=== PATIENT | female | born 1945 ===

== ENCOUNTER 2017-09-27 12:12 | Inpatient (IN) | payer MEDICARE, MEDICAID ==
[2017-09-27] VITALS (8 sets, daily range): BP systolic 84–156; BP diastolic 34–75
[~2017-09-27] VITALS: Ht 170.2 cm; Wt 139.5 kg
[2017-09-27] MEDS ORDERED: normal saline 1000ml 1,000 ML IV SCH (16:26)
[2017-09-27] MEDS ORDERED: acetaminophen 325mg tablet PO PRN ×2 (16:30)
[2017-09-27] MEDS ORDERED: HYDROcodone/acetaminophen 5mg/325mg tablet PO PRN (16:30)
[2017-09-27] MEDS ORDERED: morphine 5 MG/ML injection IV PRN (16:30)
[2017-09-27] MEDS ORDERED: ondansetron/PF 4mg/2ml inj IV PRN (16:30)
[2017-09-27] MEDS ORDERED: vancomycin/NS 1 GM ADD-VANTAGE 250 ML IV ONE (16:30)
[2017-09-27 16:40] LABS: ABG HCO3 8.5 mmol/L (22.0-26.0); ABG OXYGEN SATURATION 96.5 % (95-98); ABG PCO2 (T) 29.1 mmHg (32.0-45.0); ABG PH (T) 7.082 (7.350-7.450); ABG PO2 (T) 106.8 mmHg (83-108); FCOHb 0.2 % (0.5-1.5); FLOW 9 L/min; FMetHb 0.2 % (0.3-1.12); FO2Hb 96.1 % (94-100); RESPIRATORY RATE (OBSERVED) 26 b/min; TOTAL HEMOGLOBIN 9.5 G/dl (12.0-16.0)
[2017-09-27] MEDS: NORepinephrine 8mg/ 250ml NS 250 ML IV PRN ×2 (16:48→19:03)
[2017-09-27 16:55] LABS: OXYGEN SATURATION (MIXED VEN) 60.8 % (60-80); PO2 MIXED VENOUS (TEMP COR) 37.1 mmHg (35-46)
[2017-09-27 16:55] LABS: BASOPHILS % (AUTO) 0 % (0-1); EOSINOPHILS # (AUTO) 0.2 X10'3 (0-0.9); EOSINOPHILS % (AUTO) 1.1 % (0-6); HEMATOCRIT 27.1 % (35.0-45.0); HEMOGLOBIN 8.7 g/dl (12.0-16.0); LYMPHOCYTES # (AUTO) 1.5 X10'3 (1.1-4.8); LYMPHOCYTES % (AUTO) 6.9 % (21-51); MEAN CORPUSCULAR HEMOGLOBIN 27.4 PG (27.0-31.0); MEAN CORPUSCULAR HGB CONC 32.2 % (33.0-36.5); MEAN CORPUSCULAR VOLUME 85.2 FL (78-98); MEAN PLATELET VOLUME 8.9 FL (7.4-10.4); MONOCYTES # (AUTO) 0.8 X10'3 (0-0.9); MONOCYTES % (AUTO) 3.7 % (2-12); NEUTROPHILS # (AUTO) 19.5 X10'3 (1.8-7.7); NEUTROPHILS % (AUTO) 88.3 % (42-75); PLATELET COUNT 319 X10'3 (140-440); RED BLOOD COUNT 3.18 X10'6 (4.20-5.60); RED CELL DISTRIBUTION WIDTH 16.9 % (11.5-14.5); WHITE BLOOD COUNT 22.1 X10'3 (4.5-11.0)
[2017-09-27] MEDS: CefTRIAXone/D5W-Rocephin 1gm 50 ML IV SCH (17:09)
[2017-09-27 17:25] LABS: ALANINE AMINOTRANSFERASE 11 U/L (12-78); ALBUMIN 2.5 G/DL (3.4-5.0); ALBUMIN/GLOBULIN RATIO 0.6 (1.1-1.5); ALKALINE PHOSPHATASE 87 IU/L (46-116); ANION GAP 30 (8-16); ASPARTATE AMINO TRANSFERASE 17 U/L (10-37); BILIRUBIN,TOTAL 0.5 MG/DL (0.1-1.0); BLOOD UREA NITROGEN 72 MG/DL (7-18); BUN/CREATININE RATIO 8.9 (6.6-38.0); CALCIUM 7.8 MG/DL (8.5-10.1); CHLORIDE 97 MMOL/L (99-107); GLUCOSE 187 MG/DL (70-104); MAGNESIUM 1.6 MG/DL (1.5-2.4); POTASSIUM 5.9 MMOL/L (3.5-5.1); SODIUM 139 MMOL/L (135-145); TOTAL PROTEIN 6.5 G/DL (6.4-8.2); eGFR 5 ML/MIN
[2017-09-27 17:29] LABS: PHOSPHORUS 10.5 MG/DL (2.3-4.5)
[2017-09-27 17:31] LABS: TOTAL CARBON DIOXIDE 12.3 MMOL/L (24-32)
[2017-09-27 17:41] LABS: D-DIMER 2.27 MG/L FEU (0-0.50); INR 1.1 INR; PARTIAL THROMBOPLASTIN TIME 32 SECONDS (22-32); PROTHROMBIN TIME 11.8 SECONDS (9.0-12.0)
[2017-09-27] MEDS: vasopressin inj. 60 UNIT in normal saline 100ml IV soln 97 ML IV SCH (17:47)
[2017-09-27] MEDS: sodium bicarbonate (8.4%) inj. 150 MEQ in dextrose 5%-water 1,000 ML IV SCH (17:51)
[2017-09-27 17:55] LABS: PLATELET COUNT 319 X10'3 (140-440)
[2017-09-27] MEDS: docusate sod 100mg capsule PO SCH (20:00)
[2017-09-27] MEDS: heparin, porcine 5000 units/ml vial SQ SCH (22:00)
[2017-09-27 22:11] LABS: ABG HCO3 6.6 mmol/L (22.0-26.0); ABG OXYGEN SATURATION 94.3 % (95-98); ABG PCO2 (T) 26.1 mmHg (32.0-45.0); ABG PH (T) 7.019 (7.350-7.450); ABG PO2 (T) 87.1 mmHg (83-108); FCOHb 0.3 % (0.5-1.5); FLOW 4 L/min; FMetHb 0.3 % (0.3-1.12); FO2Hb 93.7 % (94-100); PATIENT TEMPERATURE 36.3; RESPIRATORY RATE (OBSERVED) 20 b/min
[2017-09-27] MEDS ORDERED: sodium bicarbonate (8.4%) 1 mEq/ml syringe IV ONE (22:15)
[2017-09-27 22:51] LABS: ALBUMIN 2.5 G/DL (3.4-5.0); ANION GAP 30 (8-16); BLOOD UREA NITROGEN 74 MG/DL (7-18); BUN/CREATININE RATIO 9.1 (6.6-38.0); CALCIUM 7.5 MG/DL (8.5-10.1); CHLORIDE 96 MMOL/L (99-107); GLUCOSE 230 MG/DL (70-104); SODIUM 138 MMOL/L (135-145); eGFR 5 ML/MIN
[2017-09-27 23:01] LABS: POTASSIUM 6.3 MMOL/L (3.5-5.1); TOTAL CARBON DIOXIDE 11.7 MMOL/L (24-32)
[2017-09-27] MEDS ORDERED: calcium chloride 100 MG/1 ML inj IV ONE (23:05)
[2017-09-27] MEDS ORDERED: insulin regular, human 10 units/0.1 ml syringe IV ONE (23:05)
[2017-09-27] MEDS ORDERED: dextrose 50%-water 50ml dispensing syringe IV ONE (23:05)
[2017-09-27] MEDS ORDERED: sodium polystyrene sulfonate 15gm/60ml oral suspension PO ONE (23:05)
[2017-09-27] MEDS ORDERED: insulin regular, human vial - multi-dose ONE (23:17)
[2017-09-28] VITALS (25 sets, daily range): BP systolic 70–157; BP diastolic 39–114
[2017-09-28 02:27] LABS: BASOPHILS % (AUTO) 0.1 % (0-1); EOSINOPHILS % (AUTO) 0 % (0-6); HEMATOCRIT 27.6 % (35.0-45.0); HEMOGLOBIN 8.8 g/dl (12.0-16.0); LYMPHOCYTES # (AUTO) 2.2 X10'3 (1.1-4.8); LYMPHOCYTES % (AUTO) 6.7 % (21-51); MEAN CORPUSCULAR HEMOGLOBIN 27.2 PG (27.0-31.0); MEAN CORPUSCULAR HGB CONC 31.8 % (33.0-36.5); MEAN CORPUSCULAR VOLUME 85.8 FL (78-98); MEAN PLATELET VOLUME 9.1 FL (7.4-10.4); MONOCYTES # (AUTO) 2.4 X10'3 (0-0.9); MONOCYTES % (AUTO) 7.2 % (2-12); NEUTROPHILS # (AUTO) 28.5 X10'3 (1.8-7.7); PLATELET COUNT 349 X10'3 (140-440); RED BLOOD COUNT 3.22 X10'6 (4.20-5.60); RED CELL DISTRIBUTION WIDTH 16.7 % (11.5-14.5)
[2017-09-28 02:36] LABS: WHITE BLOOD COUNT 33.2 X10'3 (4.5-11.0)
[2017-09-28 02:56] LABS: ALANINE AMINOTRANSFERASE 16 U/L (12-78); ALBUMIN 2.4 G/DL (3.4-5.0); ALBUMIN/GLOBULIN RATIO 0.6 (1.1-1.5); ALKALINE PHOSPHATASE 90 IU/L (46-116); ANION GAP 32 (8-16); ASPARTATE AMINO TRANSFERASE 33 U/L (10-37); BILIRUBIN,TOTAL 0.5 MG/DL (0.1-1.0); BLOOD UREA NITROGEN 76 MG/DL (7-18); BUN/CREATININE RATIO 9.2 (6.6-38.0); CALCIUM 8.1 MG/DL (8.5-10.1); CHLORIDE 97 MMOL/L (99-107); GLUCOSE 235 MG/DL (70-104); MAGNESIUM 1.6 MG/DL (1.5-2.4); POTASSIUM 5.5 MMOL/L (3.5-5.1); SODIUM 139 MMOL/L (135-145); TOTAL PROTEIN 6.3 G/DL (6.4-8.2); eGFR 5 ML/MIN
[2017-09-28 02:58] LABS: PHOSPHORUS 10.6 MG/DL (2.3-4.5)
[2017-09-28 03:01] LABS: TOTAL CARBON DIOXIDE 9.8 MMOL/L (24-32)
[2017-09-28 03:07] LABS: TOTAL CELLS COUNTED 100
[2017-09-28 03:08] LABS: ANISOCYTOSIS 1+; PLATELET ESTIMATE NORMAL
[2017-09-28] MEDS: sodium bicarbonate (8.4%) inj. 150 MEQ in dextrose 5%-water 1,000 ML IV SCH ×2 (04:08→15:55)
[2017-09-28] MEDS: NORepinephrine 8mg/ 250ml NS 250 ML IV PRN ×4 (07:13→23:17)
[2017-09-28] MEDS: docusate sod 100mg capsule PO SCH ×2 (08:00→20:00)
[2017-09-28 08:03] LABS: CLARITY,URINE CLOUDY (Clear); COLOR,URINE BROWN (Yellow); GLUCOSE, URINE NEGATIVE (Neg); KETONES,URINE NEGATIVE (Neg); LEUKOCYTE ESTERASE ,URINE LARGE (Neg); NITRITES, URINE NEGATIVE (Neg); OCCULT BLOOD,URINE LARGE (Neg); PH,URINE 5.5 (4.8-8.0); PROTEIN,URINE >=300 mg/dl (Neg); UROBILINOGEN,URINE 0.2 E.U/dL (0.2-1.0)
[2017-09-28 08:07] LABS: UA COLLECTION TYPE FOLEY CATH
[2017-09-28 08:20] LABS: ABG BASE EXCESS -18.6 mmol/L (-2.0-3.0); ABG HCO3 9.6 mmol/L (22.0-26.0); ABG OXYGEN SATURATION 96.3 % (95-98); ABG PH (T) 7.107 (7.350-7.450); ABG PO2 (T) 101.3 mmHg (83-108); FCOHb 0.2 % (0.5-1.5); FLOW 6 L/min; FMetHb 0.2 % (0.3-1.12); FO2Hb 95.9 % (94-100); RESPIRATORY RATE (OBSERVED) 20 b/min; TOTAL HEMOGLOBIN 9.7 G/dl (12.0-16.0)
[2017-09-28 08:25] LABS: BACTERIA,URINE 2+ /HPF (Neg); MUCUS STRANDS FEW /LPF (Neg); RBC,URINE 50-100 /HPF (0-2); SQUAMOUS EPITHELIAL CELL,UR FEW /LPF (FEW); WBC,URINE TNTC /HPF (0-4)
[2017-09-28 08:26] LABS: RENAL CELLS, URINE MODERATE /HPF; TRANSITIONAL EPI CELLS,URINE MODERATE /HPF
[2017-09-28 08:41] LABS: UA EOSINOPHILS NO EOS /HPF
[2017-09-28] MEDS: heparin, porcine 5000 units/ml vial SQ SCH ×2 (08:50→21:38)
[2017-09-28] MEDS: CefTRIAXone/D5W-Rocephin 1gm 50 ML IV SCH (08:51)
[2017-09-28 08:54] LABS: TOTAL PROTEIN,URINE RANDOM 347.2 MG/DL
[2017-09-28] MEDS ORDERED: ASPI-107 PO (10:54)
[2017-09-28] MEDS ORDERED: CARV-50 PO (10:56)
[2017-09-28] MEDS ORDERED: DOCU250C4 PO (10:58)
[2017-09-28] MEDS ORDERED: FURO40TA4 PO (10:59)
[2017-09-28] MEDS ORDERED: GABA-534 PO (11:01)
[2017-09-28] MEDS ORDERED: GABA800T2 PO (11:02)
[2017-09-28] MEDS ORDERED: IBUP-2264 PO (11:03)
[2017-09-28] MEDS ORDERED: INSU100V9 SQ (11:05)
[2017-09-28] MEDS ORDERED: LISI40TA4 PO (11:05)
[2017-09-28] MEDS ORDERED: METF500T PO (11:07)
[2017-09-28] MEDS ORDERED: PIOG45TA5 PO (11:08)
[2017-09-28] MEDS ORDERED: SIMV20TA5 PO (11:08)
[2017-09-28] MEDS ORDERED: ASCO-248 PO (11:12)
[2017-09-28] MEDS ORDERED: pneumococcal 23-VAL P-sac vacc 25 mcg/0.5ml vial IMVAC ONE (11:20)
[2017-09-28] MEDS ORDERED: FLU VACC QS2017-18 36MOS UP/PF 60 MCG/0.5 ML SYRINGE IMVAC ONE (11:20)
[2017-09-28] MEDS: vasopressin inj. 60 UNIT in normal saline 100ml IV soln 97 ML IV SCH (11:34)
[2017-09-28] MEDS ORDERED: Duosol 4k/NO Calcium 5,000 ML HE SCH (14:33)
[2017-09-28] MEDS ORDERED: sodium phosphate inj. 30 MMOL in normal saline 250ml IV soln 250 ML IV PRN (14:35)
[2017-09-28] MEDS ORDERED: potassium Cl 20mEq/100mL bag 100 ML IV PRN (14:35)
[2017-09-28] MEDS ORDERED: calcium chloride inj. 1,000 MG in normal saline 100ml IV soln 100 ML IV PRN (14:35)
[2017-09-28] MEDS ORDERED: magnesium 4gm in 100ml NS 100 ML IV PRN (14:35)
[2017-09-28] MEDS ORDERED: calcium chloride inj. 10,000 MG in normal saline 500ml IV soln 400 ML IV PRN (14:35)
[2017-09-28] MEDS: morphine 5 MG/ML injection IV PRN ×3 (14:43→22:36)
[2017-09-28] MEDS: lactobacillus rhamnosus 10,000 MMU CELLS/CAPSULE PO SCH (15:56)
[2017-09-28] MEDS ORDERED: dextrose ORAL solution 15 GM/59 ML bottle PO PRN ×2 (16:20)
[2017-09-28] MEDS ORDERED: dextrose 50%-water 50ml dispensing syringe IV PRN ×2 (16:20)
[2017-09-28] MEDS ORDERED: glucagon, human recombinant 1mg kit SUBCUT PRN (16:20)
[2017-09-28] MEDS: citrate dextrose 1000ml IV sol 1,000 ML IV PRN ×2 (18:43→22:22)
[2017-09-28] MEDS: Duosol 4k/NO Calcium 5,000 ML HE PRN ×2 (18:55→19:05)
[2017-09-28] MEDS ORDERED: insulin glargine (Lantus) pen - multi-dose SQ SCH (21:00)
[2017-09-28 21:13] LABS: BASOPHILS # (AUTO) 0.1 X10'3 (0-0.2); BASOPHILS % (AUTO) 0.3 % (0-1); EOSINOPHILS % (AUTO) 0 % (0-6); HEMATOCRIT 26.3 % (35.0-45.0); HEMOGLOBIN 8.4 g/dl (12.0-16.0); LYMPHOCYTES % (AUTO) 3.7 % (21-51); MEAN CORPUSCULAR HEMOGLOBIN 27.2 PG (27.0-31.0); MEAN CORPUSCULAR HGB CONC 32.1 % (33.0-36.5); MEAN CORPUSCULAR VOLUME 84.8 FL (78-98); MEAN PLATELET VOLUME 8.8 FL (7.4-10.4); MONOCYTES % (AUTO) 7.7 % (2-12); NEUTROPHILS # (AUTO) 23.3 X10'3 (1.8-7.7); NEUTROPHILS % (AUTO) 88.3 % (42-75); PLATELET COUNT 308 X10'3 (140-440); RED CELL DISTRIBUTION WIDTH 16.5 % (11.5-14.5)
[2017-09-28 21:25] LABS: WHITE BLOOD COUNT 26.4 X10'3 (4.5-11.0)
[2017-09-28 21:35] LABS: ALBUMIN 2.6 G/DL (3.4-5.0); ANION GAP 28 (8-16); BLOOD UREA NITROGEN 80 MG/DL (7-18); BUN/CREATININE RATIO 10.3 (6.6-38.0); CHLORIDE 98 MMOL/L (99-107); GLUCOSE 196 MG/DL (70-104); MAGNESIUM 1.6 MG/DL (1.5-2.4); POTASSIUM 5.4 MMOL/L (3.5-5.1); SODIUM 141 MMOL/L (135-145); TOTAL CARBON DIOXIDE 15.5 MMOL/L (24-32); eGFR 5 ML/MIN
[2017-09-28] MEDS: insulin Lispro (HumaLOG) vial - multi-dose SQ SCH (21:36)
[2017-09-28 21:46] LABS: PHOSPHORUS 9.6 MG/DL (2.3-4.5)
[2017-09-28 22:08] LABS: BASOPHILS # (AUTO) 0.1 X10'3 (0-0.2); BASOPHILS % (AUTO) 0.2 % (0-1); EOSINOPHILS # (AUTO) 0.4 X10'3 (0-0.9); EOSINOPHILS % (AUTO) 1.5 % (0-6); HEMATOCRIT 26.5 % (35.0-45.0); HEMOGLOBIN 8.6 g/dl (12.0-16.0); LYMPHOCYTES # (AUTO) 0.9 X10'3 (1.1-4.8); LYMPHOCYTES % (AUTO) 3.5 % (21-51); MEAN CORPUSCULAR HEMOGLOBIN 27.2 PG (27.0-31.0); MEAN CORPUSCULAR HGB CONC 32.4 % (33.0-36.5); MEAN CORPUSCULAR VOLUME 83.9 FL (78-98); MEAN PLATELET VOLUME 8.6 FL (7.4-10.4); MONOCYTES # (AUTO) 1.7 X10'3 (0-0.9); MONOCYTES % (AUTO) 6.4 % (2-12); NEUTROPHILS # (AUTO) 23.6 X10'3 (1.8-7.7); NEUTROPHILS % (AUTO) 88.4 % (42-75); PLATELET COUNT 312 X10'3 (140-440); RED BLOOD COUNT 3.16 X10'6 (4.20-5.60); RED CELL DISTRIBUTION WIDTH 17.1 % (11.5-14.5)
[2017-09-28 22:12] LABS: WHITE BLOOD COUNT 26.7 X10'3 (4.5-11.0)
[2017-09-28 22:29] LABS: ALBUMIN 2.6 G/DL (3.4-5.0); ANION GAP 28 (8-16); BLOOD UREA NITROGEN 77 MG/DL (7-18); BUN/CREATININE RATIO 10.3 (6.6-38.0); CHLORIDE 97 MMOL/L (99-107); GLUCOSE 204 MG/DL (70-104); MAGNESIUM 1.5 MG/DL (1.5-2.4); PHOSPHORUS 9.1 MG/DL (2.3-4.5); POTASSIUM 5.4 MMOL/L (3.5-5.1); SODIUM 140 MMOL/L (135-145); TOTAL CARBON DIOXIDE 15.1 MMOL/L (24-32); eGFR 5 ML/MIN
[2017-09-28 23:09] LABS: BASOPHILS # (AUTO) 0.1 X10'3 (0-0.2); BASOPHILS % (AUTO) 0.3 % (0-1); EOSINOPHILS % (AUTO) 0 % (0-6); HEMATOCRIT 26.3 % (35.0-45.0); HEMOGLOBIN 8.6 g/dl (12.0-16.0); LYMPHOCYTES % (AUTO) 3.7 % (21-51); MEAN CORPUSCULAR HEMOGLOBIN 27.3 PG (27.0-31.0); MEAN CORPUSCULAR HGB CONC 32.6 % (33.0-36.5); MEAN CORPUSCULAR VOLUME 83.7 FL (78-98); MEAN PLATELET VOLUME 8.7 FL (7.4-10.4); MONOCYTES # (AUTO) 1.9 X10'3 (0-0.9); MONOCYTES % (AUTO) 7.2 % (2-12); NEUTROPHILS # (AUTO) 23.7 X10'3 (1.8-7.7); NEUTROPHILS % (AUTO) 88.8 % (42-75); PLATELET COUNT 299 X10'3 (140-440); RED BLOOD COUNT 3.14 X10'6 (4.20-5.60); RED CELL DISTRIBUTION WIDTH 16.4 % (11.5-14.5)
[2017-09-28 23:21] LABS: TOTAL CELLS COUNTED 100
[2017-09-28 23:21] LABS: ALBUMIN 2.7 G/DL (3.4-5.0); ANION GAP 27 (8-16); BLOOD UREA NITROGEN 76 MG/DL (7-18); BUN/CREATININE RATIO 10.7 (6.6-38.0); CHLORIDE 97 MMOL/L (99-107); GLUCOSE 201 MG/DL (70-104); MAGNESIUM 1.5 MG/DL (1.5-2.4); PHOSPHORUS 8.7 MG/DL (2.3-4.5); POTASSIUM 5.3 MMOL/L (3.5-5.1); SODIUM 140 MMOL/L (135-145); TOTAL CARBON DIOXIDE 16.2 MMOL/L (24-32); eGFR 6 ML/MIN
[2017-09-28 23:22] LABS: ANISOCYTOSIS 1+; BURR CELLS 1+; ELLIPTOCYTES 1+; PLATELET ESTIMATE NORMAL
[2017-09-28 23:34] LABS: WHITE BLOOD COUNT 26.7 X10'3 (4.5-11.0)
[2017-09-28] MEDS ORDERED: calcium chloride 100 MG/1 ML inj IV ONE (23:44)
[2017-09-29] VITALS (16 sets, daily range): BP systolic 52–155; BP diastolic 32–95
[2017-09-29 00:11] LABS: BASOPHILS % (AUTO) 0.1 % (0-1); EOSINOPHILS # (AUTO) 0.4 X10'3 (0-0.9); EOSINOPHILS % (AUTO) 1.5 % (0-6); HEMATOCRIT 26.1 % (35.0-45.0); HEMOGLOBIN 8.6 g/dl (12.0-16.0); LYMPHOCYTES # (AUTO) 0.9 X10'3 (1.1-4.8); LYMPHOCYTES % (AUTO) 3.3 % (21-51); MEAN CORPUSCULAR HEMOGLOBIN 27.4 PG (27.0-31.0); MEAN CORPUSCULAR HGB CONC 32.9 % (33.0-36.5); MEAN CORPUSCULAR VOLUME 83.4 FL (78-98); MEAN PLATELET VOLUME 8.7 FL (7.4-10.4); MONOCYTES # (AUTO) 2.1 X10'3 (0-0.9); NEUTROPHILS # (AUTO) 22.9 X10'3 (1.8-7.7); NEUTROPHILS % (AUTO) 87.1 % (42-75); PLATELET COUNT 307 X10'3 (140-440); RED BLOOD COUNT 3.13 X10'6 (4.20-5.60); RED CELL DISTRIBUTION WIDTH 16.6 % (11.5-14.5)
[2017-09-29 00:20] LABS: WHITE BLOOD COUNT 26.2 X10'3 (4.5-11.0)
[2017-09-29 00:27] LABS: ALBUMIN 2.7 G/DL (3.4-5.0); ANION GAP 23 (8-16); BLOOD UREA NITROGEN 70 MG/DL (7-18); BUN/CREATININE RATIO 10.3 (6.6-38.0); CHLORIDE 100 MMOL/L (99-107); GLUCOSE 191 MG/DL (70-104); MAGNESIUM 1.5 MG/DL (1.5-2.4); PHOSPHORUS 8.3 MG/DL (2.3-4.5); POTASSIUM 5.3 MMOL/L (3.5-5.1); SODIUM 141 MMOL/L (135-145); TOTAL CARBON DIOXIDE 17.9 MMOL/L (24-32); eGFR 6 ML/MIN
[2017-09-29] MEDS: Duosol 4k/NO Calcium 5,000 ML HE PRN ×5 (00:32→07:43)
[2017-09-29] MEDS: insulin Lispro (HumaLOG) vial - multi-dose SQ SCH ×2 (02:18→08:30)
[2017-09-29] MEDS: sodium bicarbonate (8.4%) inj. 150 MEQ in dextrose 5%-water 1,000 ML IV SCH (02:24)
[2017-09-29 04:13] LABS: BASOPHILS % (AUTO) 0.1 % (0-1); EOSINOPHILS % (AUTO) 0 % (0-6); HEMATOCRIT 25.4 % (35.0-45.0); HEMOGLOBIN 8.4 g/dl (12.0-16.0); LYMPHOCYTES # (AUTO) 0.8 X10'3 (1.1-4.8); LYMPHOCYTES % (AUTO) 3.5 % (21-51); MEAN CORPUSCULAR HEMOGLOBIN 27.2 PG (27.0-31.0); MEAN CORPUSCULAR HGB CONC 33.1 % (33.0-36.5); MEAN CORPUSCULAR VOLUME 82.2 FL (78-98); MEAN PLATELET VOLUME 8.6 FL (7.4-10.4); MONOCYTES # (AUTO) 1.9 X10'3 (0-0.9); NEUTROPHILS # (AUTO) 20.6 X10'3 (1.8-7.7); NEUTROPHILS % (AUTO) 88.4 % (42-75); PLATELET COUNT 285 X10'3 (140-440); RED BLOOD COUNT 3.09 X10'6 (4.20-5.60); RED CELL DISTRIBUTION WIDTH 16.9 % (11.5-14.5); WHITE BLOOD COUNT 23.3 X10'3 (4.5-11.0)
[2017-09-29 04:33] LABS: ALANINE AMINOTRANSFERASE 22 U/L (12-78); ALBUMIN 2.7 G/DL (3.4-5.0); ALBUMIN/GLOBULIN RATIO 0.7 (1.1-1.5); ALKALINE PHOSPHATASE 91 IU/L (46-116); ANION GAP 22 (8-16); ASPARTATE AMINO TRANSFERASE 51 U/L (10-37); BILIRUBIN,TOTAL 0.4 MG/DL (0.1-1.0); BLOOD UREA NITROGEN 62 MG/DL (7-18); BUN/CREATININE RATIO 10.9 (6.6-38.0); CALCIUM 8.5 MG/DL (8.5-10.1); CHLORIDE 100 MMOL/L (99-107); GLUCOSE 172 MG/DL (70-104); MAGNESIUM 2.3 MG/DL (1.5-2.4); PHOSPHORUS 6.9 MG/DL (2.3-4.5); POTASSIUM 4.9 MMOL/L (3.5-5.1); SODIUM 141 MMOL/L (135-145); TOTAL CARBON DIOXIDE 19.4 MMOL/L (24-32); TOTAL PROTEIN 6.4 G/DL (6.4-8.2); eGFR 7 ML/MIN
[2017-09-29] MEDS: morphine 5 MG/ML injection IV PRN ×3 (04:47→10:05)
[2017-09-29] MEDS: lactobacillus rhamnosus 10,000 MMU CELLS/CAPSULE PO SCH (07:30)
[2017-09-29] MEDS: NORepinephrine 8mg/ 250ml NS 250 ML IV PRN (07:46)
[2017-09-29] MEDS: docusate sod 100mg capsule PO SCH (07:51)
[2017-09-29] MEDS: CefTRIAXone/D5W-Rocephin 1gm 50 ML IV SCH (08:15)
[2017-09-29] MEDS: heparin, porcine 5000 units/ml vial SQ SCH (08:16)
[2017-09-29 09:21] LABS: ABG BASE EXCESS -3.7 mmol/L (-2.0-3.0); ABG HCO3 22.3 mmol/L (22.0-26.0); ABG OXYGEN SATURATION 97.3 % (95-98); ABG PCO2 (T) 43.7 mmHg (32.0-45.0); ABG PH (T) 7.322 (7.350-7.450); FCOHb 0.3 % (0.5-1.5); FLOW 6 L/min; FMetHb 0.2 % (0.3-1.12); FO2Hb 96.8 % (94-100); PATIENT TEMPERATURE 36.4; RESPIRATORY RATE (OBSERVED) 18 b/min; TOTAL HEMOGLOBIN 8.6 G/dl (12.0-16.0)
[2017-09-29 09:25] LABS: PO2 MIXED VENOUS (TEMP COR) 38.1 mmHg (35-46)
[2017-09-29 10:54] LABS: BASOPHILS % (AUTO) 0.1 % (0-1); EOSINOPHILS # (AUTO) 0.3 X10'3 (0-0.9); EOSINOPHILS % (AUTO) 1.8 % (0-6); HEMATOCRIT 23.9 % (35.0-45.0); HEMOGLOBIN 7.9 g/dl (12.0-16.0); LYMPHOCYTES # (AUTO) 0.8 X10'3 (1.1-4.8); LYMPHOCYTES % (AUTO) 4.5 % (21-51); MEAN CORPUSCULAR HEMOGLOBIN 27.3 PG (27.0-31.0); MEAN CORPUSCULAR HGB CONC 32.9 % (33.0-36.5); MEAN CORPUSCULAR VOLUME 82.9 FL (78-98); MEAN PLATELET VOLUME 7.7 FL (7.4-10.4); MONOCYTES # (AUTO) 1.6 X10'3 (0-0.9); MONOCYTES % (AUTO) 8.9 % (2-12); NEUTROPHILS # (AUTO) 15.6 X10'3 (1.8-7.7); NEUTROPHILS % (AUTO) 84.7 % (42-75); PLATELET COUNT 259 X10'3 (140-440); RED BLOOD COUNT 2.89 X10'6 (4.20-5.60); RED CELL DISTRIBUTION WIDTH 16.9 % (11.5-14.5); WHITE BLOOD COUNT 18.4 X10'3 (4.5-11.0)
[2017-09-29] MEDS ORDERED: LORazepam 2 mg/ml vial IV PRN (11:00)
[2017-09-29 11:09] LABS: ALBUMIN 2.6 G/DL (3.4-5.0); ANION GAP 17 (8-16); BLOOD UREA NITROGEN 50 MG/DL (7-18); BUN/CREATININE RATIO 11.1 (6.6-38.0); CHLORIDE 102 MMOL/L (99-107); GLUCOSE 124 MG/DL (70-104); PHOSPHORUS 5.1 MG/DL (2.3-4.5); POTASSIUM 4.5 MMOL/L (3.5-5.1); SODIUM 143 MMOL/L (135-145); TOTAL CARBON DIOXIDE 24.3 MMOL/L (24-32); eGFR 10 ML/MIN
[2017-09-29] MEDS ORDERED: morphine 5 MG/ML injection IV PRN (11:10)
== END 2017-09-29 18:08 | disposition expired | DRG 871 ==
LOC: ICU 2S 15:47
PROVIDERS: ADMIT Internal Medicine Critical Care Medicine; ATTEND Internal Medicine Critical Care Medicine
PROC: 02HV33Z Insertion of Infusion Device into Superior Vena Cava, Percutaneous Approach (ICD-10-PCS; principal; 2017-09-27)
PROC: 04HY32Z Insertion of Monitoring Device into Lower Artery, Percutaneous Approach (ICD-10-PCS; 2017-09-27)
PROC: 4A133B1 Monitoring of Arterial Pressure, Peripheral, Percutaneous Approach (ICD-10-PCS; 2017-09-27)
PROC: 4A133J1 Monitoring of Arterial Pulse, Peripheral, Percutaneous Approach (ICD-10-PCS; 2017-09-27)
PROC: 06HM33Z Insertion of Infusion Device into Right Femoral Vein, Percutaneous Approach (ICD-10-PCS; 2017-09-28)
PROC: B54BZZA Ultrasonography of Right Lower Extremity Veins, Guidance (ICD-10-PCS; 2017-09-28)
PROC: 5A1D90Z Performance of Urinary Filtration, Continuous, Greater than 18 hours Per Day (ICD-10-PCS; 2017-09-28)
DX: A41.9 Sepsis, unspecified organism (principal); N17.0 Acute kidney failure with tubular necrosis; R57.9 Shock, unspecified; Z68.42 Body mass index [BMI] 45.0-49.9, adult; E11.40 Type 2 diabetes mellitus with diabetic neuropathy, unspecified; E11.610 Type 2 diabetes mellitus with diabetic neuropathic arthropathy; F41.0 Panic disorder [episodic paroxysmal anxiety]; E66.9 Obesity, unspecified; I10 Essential (primary) hypertension; I25.10 Atherosclerotic heart disease of native coronary artery without angina pectoris; Z66 Do not resuscitate; Z51.5 Encounter for palliative care; I25.2 Old myocardial infarction; Z90.710 Acquired absence of both cervix and uterus; Z90.49 Acquired absence of other specified parts of digestive tract; Z90.722 Acquired absence of ovaries, bilateral; Z88.8 Allergy status to other drugs, medicaments and biological substances; Z79.4 Long term (current) use of insulin; Z85.42 Personal history of malignant neoplasm of other parts of uterus; Z86.73 Personal history of transient ischemic attack (TIA), and cerebral infarction without residual deficits; Z87.891 Personal history of nicotine dependence
CPT/HCPCS: 36415; 36600; 71045; 74176; 80048; 80053; 80069; 81001; 82330; 82570; 82803; 82810; 82948; 83036; 83605; 83735; 84100; 84145; 84156; 84300; 84443; 85018; 85025; 85379; 85384; 85610; 85730; 87040; 87070; 87077; 87088; 87186; 87207; 93308; A6213; A6449; C1758; J0696; J1644; J1815; J2060; J2405; J3370; J3475; J3490; J7030